=== PATIENT | male | born 1970 | race Asian ===

== ENCOUNTER 2017-06-30 18:54 | Emergency (ER) | payer OTHER ==
[~2017-06-30] VITALS: Ht 172.7 cm; Wt 90.7 kg
[~2017-06-30 18:54] MED LIST: ANTI-HYPERTENSIVE PO; ASPIRIN PO; IBUPROFEN PO; LISINOPRIL PO; LOPID600 MG PO; ZOCOR PO
== END 2017-06-30 19:50 | disposition home or self-care (01) ==
LOC: CFTX 18:54 → CED 18:54 → CFTX 18:56
DX: L23.7 Allergic contact dermatitis due to plants, except food (principal)
CPT/HCPCS: 99282